=== PATIENT | male | born 1955 | race Caucasian/White ===

== ENCOUNTER 2017-03-07 18:07 | Inpatient (IN) | payer OTHER ==
[2017-03-07] MEDS ORDERED: NS 1,000 ML IV ONE (18:19)
[2017-03-07] MEDS ORDERED: ONDANSETRON 4 MG/2 ML VIAL IVP ONE (18:19)
[2017-03-07] MEDS ORDERED: HYDROmorphONE/DILAUDID 1 MG/ML INJ IVP ONE (18:19)
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
[2017-03-07 18:27] LABS: % IMMATURE GRANULYOCYTES 0.8 % (0.0-1.1); ABSOLUTE IMMATURE GRANULOCYTES 0.14 10^3/uL (0.00-0.10); ADD DIFF? NO; ADD MORPH? NO; ADD SCAN? NO; ATYPICAL LYMPHOCYTE FLAG 0 (0-99); FRAGMENT RBC FLAG 0 (0-99); HEMOGLOBIN 12.8 g/dL (13.7-17.5); LEFT SHIFT FLG 40 (0-99); LIPEMIA HEMOLYSIS FLAG 80 (0-99); MEAN CELL HEMOGLOBIN 27.5 pg (27.9-34.1); MEAN PLATELET VOLUME 9.5 fL (8.7-11.7); PLATELET CLUMPS FLAG 0 (0-99); PLATELET COUNT 250 10^3/uL (150-400); RED BLOOD CELL COUNT 4.65 10^6/uL (4.40-6.38); RED CELL DISTRIBUTION WIDTH 14.2 % (11.5-15.2)
[2017-03-07] MEDS ORDERED: CEFAZOLIN 2 GM/DEXTROSE/100 ML BAG IV ONE (18:29)
[2017-03-07 18:39] LABS: INR 1.22 (0.83-1.16); PROTIME(PATIENT) 15.4 SEC (12.0-15.0)
[2017-03-07 18:40] LABS: APTT 25.2 SEC (23.0-38.0)
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
[2017-03-07 18:46] LABS: ANION GAP 15 mEq/L (8-16); CALCIUM 9.2 mg/dL (8.5-10.4); CARBON DIOXIDE 21 mEq/l (22-31); CHLORIDE 102 mEq/L (97-110); CREATININE 1.3 mg/dL (0.7-1.3); ETHANOL SERUM < 10 mg/dL (0-10); GLOMERULAR FILTRATION RATE 57; GLUCOSE 187 mg/dL (70-100); POTASSIUM 3.6 mEq/L (3.5-5.2); SODIUM 138 mEq/L (134-144)
[2017-03-07] MEDS ORDERED: TDAP ADULT 0.5 ML INJ (BOOSTRIX) IM ONE (18:55)
[2017-03-07] MEDS ORDERED: ceFAZolin 2 GM/DEXTROSE 100 ML IV ONE (18:59)
--- NOTE | 2017-03-07 19:12 | ASMTCMCOM ---
CM Note CM Note Notes: Patient's children live in [place], [place]: daughter Marley ([phone]), daughter Britany ([phone]), and son Sam ([phone]). Patient's girlfriend Sabine Bangura has arrived to the ED and is being updated on patient's condition. Date Signed: 03/07/2017 07:12 PM Electronically Signed By:Elisabeth Rizzo RN
[2017-03-07] MEDS ORDERED: ONDANSETRON 4 MG/2 ML VIAL IVP PRN (19:20)
--- NOTE | 2017-03-07 19:22 | ASMTCMCOM ---
CM Note CM Note Notes: Patient's girlfriend, Sabine Bangura's cell phone # ([phone]). Spoke with patient and he would prefer to not contact his children at this time. He would like to wait until he is more coherent and able to talk to them himself. This was communicated to Sabine and the ED RN. Date Signed: 03/07/2017 07:21 PM Electronically Signed By:Elisabeth Rizzo RN
[2017-03-07] MEDS ORDERED: LR 1,000 ML IV SCH (19:30)
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
[2017-03-07] MEDS: HYDROmorphONE/DILAUDID 2 MG/ML INJ IVP PRN (20:39)
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
[2017-03-07] MEDS ORDERED: fentaNYL 100 MCG/2 ML INJ ONE (21:30)
[2017-03-07] MEDS ORDERED: PROPOFOL 200 MG/20 ML VIAL ONE ×2 (21:30)
[2017-03-07] MEDS ORDERED: ROCURONIUM 50 MG/5 ML VIAL ONE (21:32)
[2017-03-07] MEDS ORDERED: MIDAZOLAM 2 MG/2 ML VIAL IVP ONE (21:51)
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
[2017-03-07] MEDS ORDERED: MIDAZOLAM 2 MG/2 ML VIAL ONE (21:53)
[2017-03-07] MEDS ORDERED: PHENYLEPHRINE HCL 100 MCG/ML SYR ONE (22:20)
[2017-03-07] MEDS ORDERED: ceFAZolin 1 GM VIAL ONE ×2 (22:26)
[2017-03-07] MEDS ORDERED: ALBUMIN 5% 250 ML BOTTLE IV ONE (22:31)
[2017-03-07] MEDS ORDERED: VASOPRESSIN 20 UNIT/ML VIAL ONE (22:47)
[2017-03-07 22:51] LABS: HEMATOCRIT 27.6 % (40.0-51.0); HEMOGLOBIN 8.9 g/dL (13.7-17.5)
[2017-03-07] MEDS ORDERED: DEXAMETHASONE 4 MG/ML VIAL ONE (23:03)
[2017-03-07] MEDS ORDERED: ONDANSETRON 4 MG/2 ML VIAL ONE (23:03)
[2017-03-08] MEDS ORDERED: fentaNYL 100 MCG/2 ML INJ IVP PRN (00:21)
[2017-03-08] MEDS ORDERED: ONDANSETRON 4 MG/2 ML VIAL IVP PRN (00:21)
[2017-03-08] MEDS ORDERED: HYDROmorphONE/DILAUDID 1 MG/ML INJ IVP PRN (00:21)
[2017-03-08] MEDS ORDERED: NALOXONE HCL 0.4 MG/ML INJ IVP PRN (00:21)
[2017-03-08] MEDS ORDERED: ACETAMINOPHEN 500 MG TAB PO PRN (00:21)
[2017-03-08] MEDS ORDERED: PROMETHAZINE HCL 25 MG/ML INJ IVP PRN (00:21)
[2017-03-08] MEDS ORDERED: HYDROmorphONE/DILAUDID 1 MG/ML INJ ONE (00:21)
[2017-03-08] MEDS ORDERED: OXYCODONE/APAP 5/325 TAB PO PRN (00:21)
--- NOTE | 2017-03-08 01:14 | SUROPNOTE ---
[facility] Operative Report - Surgery Pre-op diagnosis: left proximal tibia and fibula fractures, open and comminuted. Procedure: I and D and ORIF proximal tibia fracture. Complications: None Post-op diagnosis: ORIF left proximal tibia fracture.
--- NOTE | 2017-03-08 01:21 | POSTOPPROG ---
Post Op Note Date of Operation: 03/08/17 Surgeon: Gisell Salazar Inf/Ajay present in the surg proc area at time of surgery?: No Complications: Pre-op diagnosis: Left open proximal tibia fracture, proximal fibula fracture, comminuted. Procedure: I and D and debridement with ORIF proximal tibia fracture. Complications: none Post-op diagnosis: Left proximal tibia fracture with ORIF repair, proximal fibula fracture. Surgeon: Dr. Dang
--- NOTE | 2017-03-08 01:38 | POSTANESTH ---
Post Anesthetic Evaluation Cardiovascular Status: Normal, Stable, Similar to Pre-Op Cond Respiratory Status: Normal, Stable, Similar to Pre-op Cond. Level of Consciousness/Mental Status: Can Participate in Eval, Alert and Oriented Pain Control: Adequate, Prn Tx Ordered Nausea/Vomiting Control: Adequate, Prn Tx Ordered Complications Possibly Related to Anesthesia: None Noted
[2017-03-08] MEDS: HYDROCODONE/APAP 5/325 TAB PO PRN ×3 (02:02→18:01)
[2017-03-08] MEDS: BACITRACIN ZINC 14.2 GM OINTTUBE TP SCH ×3 (02:04→21:24)
[2017-03-08 03:12] LABS: COLOR YELLOW; LEUKOCYTE ESTERASE,URINE NEGATIVE (NEGATIVE); NITRITE,URINE NEGATIVE (NEGATIVE)
[2017-03-08] MEDS: HYDROmorphONE/DILAUDID 2 MG/ML INJ IVP PRN ×2 (04:25→09:20)
[2017-03-08] MEDS: ceFAZolin 2 GM/DEXTROSE 100 ML IV SCH ×3 (05:26→21:23)
[2017-03-08 05:31] LABS: HEMATOCRIT 27.4 % (40.0-51.0); HEMOGLOBIN 8.7 g/dL (13.7-17.5); MEAN CELL HEMOGLOBIN 27.4 pg (27.9-34.1); MEAN CELL HEMOGLOBIN CONCENTR. 31.8 g/dL (32.4-36.7); MEAN CELL VOLUME 86.4 fL (81.5-99.8); RED BLOOD CELL COUNT 3.17 10^6/uL (4.40-6.38); RED CELL DISTRIBUTION WIDTH 14.3 % (11.5-15.2)
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
[2017-03-08 05:38] LABS: ANION GAP 10 mEq/L (8-16); CALCIUM 8.6 mg/dL (8.5-10.4); CARBON DIOXIDE 21 mEq/l (22-31); CHLORIDE 105 mEq/L (97-110); GLOMERULAR FILTRATION RATE > 60; GLUCOSE 187 mg/dL (70-100); POTASSIUM 4.9 mEq/L (3.5-5.2); SODIUM 136 mEq/L (134-144)
--- NOTE | 2017-03-08 08:44 | SOAPPROG ---
SOAP Progress Note Assessment/Plan: Assessment:Pt. POD #1 after ORIF an open, displaced proximal tibia fracture. Plan:Continue pain management Continue Q8H Cefazolin for a total of 24 hours. PT/OT zora JOAQUIN LLE-ambulate with crutches when able Pt. to remain in brace at all times Ice Elevate Reinforce dressing if needed. Subjective: Pt. states that pain is well controlled with medications that he has been given up to this point. No fevers, MAYS, SOB, CP, N/V, lower extremity numbness or tingling, no calf pain. O: Pt. is alert and oriented in no acute distress. Pt. has no calf TTP, no swelling. Distally, pt. is NVBI. Devonte wraps removed and there is some light bleeding into gauze. 03/08/17 08:39 Objective: Vital Signs Temp Pulse Resp BP Pulse Ox 37.2 C 117 H 16 139/73 H 100 03/08/17 08:00 03/08/17 08:00 03/08/17 08:00 03/08/17 08:00 03/08/17 08:00 Laboratory Results 03/08/17 04:55 03/08/17 04:55 03/07/17 03/08/17 03/09/17 05:59 05:59 05:59 Intake Total 5695 Output Total 1000 Balance 4695 PT 15.4 SEC (12.0-15.0) H 03/07/17 18:15 INR 1.22 (0.83-1.16) H 03/07/17 18:15 ICD10 Worksheet Patient Problems: Problems Problem Status Onset Open fracture Acute
[2017-03-08] MEDS: ENOXAPARIN 40 MG/0.4 ML SYR SC SCH (09:23)
[2017-03-08] MEDS: CYCLOBENZAPRINE 10 MG TAB PO PRN ×2 (11:43→21:23)
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
[2017-03-09] MEDS: CYCLOBENZAPRINE 10 MG TAB PO PRN (05:44)
--- NOTE | 2017-03-09 08:48 | SOAPPROG ---
SOAP Progress Note Assessment/Plan: Assessment/Plan: s/p I&D and ORIF L proximal tibia fracture POD#2 - Continue pain management - NWB LLE - Dressing change done today - Lovenox 40mg daily x 21 days for VTE chemoprophylaxis - KURT/SCD on the RLE for mechanical prophylaxis - Brace to remain on and intact at all times; locked in extension at rest. ROM 0 to 90 degrees - Stable from an orthopedic standpoint, will need appropriate follow-up in 03/09/17 08:44 Subjective: Pt states he is doing well, pain is well-controlled. Pt denies fever, chills, chest pain, SOB, abdominal pain, N/V/D, numbness, tingling, and calf pain. Objective: Vital Signs Temp Pulse Resp BP Pulse Ox 37.4 C 124 H 16 139/75 H 96 03/09/17 07:59 03/09/17 07:59 03/09/17 07:59 03/09/17 07:59 03/09/17 07:59 Laboratory Results 03/08/17 04:55 03/08/17 04:55 03/08/17 03/09/17 03/10/17 05:59 05:59 05:59 Intake Total 5695 1670 Output Total 1000 2300 Balance 4695 -630 PT 15.4 SEC (12.0-15.0) H 03/07/17 18:15 INR 1.22 (0.83-1.16) H 03/07/17 18:15 Physical Exam - Physical Exam General Appearance: alert, no apparent distress Cardiac/Chest: normal peripheral pulses Skin: normal color, warm/dry, other (facial abrasions) Extremities: normal capillary refill, other (incision site c/d/i), No pedal edema, No calf tenderness, No Johnathan's sign Neuro/Psych: no motor/sensory deficits, alert, normal mood/affect, oriented x 3 ICD10 Worksheet Patient Problems: Problems Problem Status Onset Open fracture Acute
[2017-03-09] MEDS: HYDROCODONE/APAP 5/325 TAB PO PRN ×3 (08:49→20:09)
[2017-03-09] MEDS: BACITRACIN ZINC 14.2 GM OINTTUBE TP SCH ×2 (08:49→20:10)
[2017-03-09] MEDS: ENOXAPARIN 40 MG/0.4 ML SYR SC SCH (08:49)
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
--- NOTE | 2017-03-09 14:27 | CPEKG ---
Heart Rate: 117 RR Interval: 513 P-R Interval: 128 QRSD Interval: 86 QT Interval: 264 QTC Interval: 369 P [place]: 57 QRS [place]: 31 T Wave [place]: 235 EKG Severity - OTHERWISE NORMAL ECG - EKG Impression: SINUS TACHYCARDIA Electronically Signed By: Kavon Hackett 15-Mar-2017 08:55:11
[2017-03-09 18:44] LABS: % IMMATURE GRANULYOCYTES 0.4 % (0.0-1.1); ABSOLUTE IMMATURE GRANULOCYTES 0.03 10^3/uL (0.00-0.10); ADD DIFF? NO; ADD MORPH? NO; ADD SCAN? NO; ATYPICAL LYMPHOCYTE FLAG 0 (0-99); FRAGMENT RBC FLAG 0 (0-99); HEMATOCRIT 21.5 % (40.0-51.0); LEFT SHIFT FLG 20 (0-99); LIPEMIA HEMOLYSIS FLAG 80 (0-99); MEAN CELL HEMOGLOBIN 27.6 pg (27.9-34.1); MEAN CELL HEMOGLOBIN CONCENTR. 32.6 g/dL (32.4-36.7); MEAN CELL VOLUME 84.6 fL (81.5-99.8); MEAN PLATELET VOLUME 9.9 fL (8.7-11.7); PLATELET CLUMPS FLAG 0 (0-99); PLATELET COUNT 138 10^3/uL (150-400); RED BLOOD CELL COUNT 2.54 10^6/uL (4.40-6.38); RED CELL DISTRIBUTION WIDTH 14.2 % (11.5-15.2)
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
[2017-03-09] MEDS: PRAVASTATIN SODIUM 20 MG TAB PO SCH (21:05)
[2017-03-09] MEDS: LISINOPRIL 10 MG TAB PO SCH (21:06)
[2017-03-10] MEDS ORDERED: BISACODYL 10 MG SUPP PR PRN (07:12)
[2017-03-10] MEDS ORDERED: MAGNESIUM HYDROXIDE 30 ML UDCUP PO PRN (07:12)
[2017-03-10] MEDS ORDERED: POLYETHYLENE GLYCOL 3350 17 GM PKT PO PRN (07:12)
[2017-03-10] MEDS ORDERED: LACTULOSE 20 GM/30 ML UDCUP PO PRN (07:12)
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
[2017-03-10] MEDS: HYDROCODONE/APAP 5/325 TAB PO PRN ×2 (09:22→20:00)
[2017-03-10] MEDS: OMEGA-3 FATTY ACIDS 1,000 MG CAP PO SCH (09:22)
[2017-03-10] MEDS: MULTIVITAMINS 1 EACH TAB PO SCH (09:22)
[2017-03-10] MEDS: ENOXAPARIN 40 MG/0.4 ML SYR SC SCH (09:23)
[2017-03-10] MEDS: SENNOSIDES/DOCUSATE SODIUM TAB PO SCH ×2 (09:23→20:01)
[2017-03-10] MEDS: ACYCLOVIR 400 MG TAB PO SCH (09:24)
[2017-03-10] MEDS: BACITRACIN ZINC 14.2 GM OINTTUBE TP SCH ×2 (09:24→20:02)
--- NOTE | 2017-03-10 15:46 | ASMTCMCOM ---
CM Note CM Note Notes: No CM d/c needs identified at this time, pt plans to return to [place] [facility]. CM available for changes/needs. Date Signed: 03/10/2017 03:46 PM Electronically Signed By:ALFREDO Mckeon
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
[2017-03-10] MEDS: LISINOPRIL 10 MG TAB PO SCH (20:01)
[2017-03-10] MEDS: PRAVASTATIN SODIUM 20 MG TAB PO SCH (20:01)
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
[2017-03-11 05:17] LABS: % IMMATURE GRANULYOCYTES 0.9 % (0.0-1.1); ABSOLUTE IMMATURE GRANULOCYTES 0.06 10^3/uL (0.00-0.10); ADD DIFF? NO; ADD MORPH? NO; ADD SCAN? NO; ATYPICAL LYMPHOCYTE FLAG 0 (0-99); FRAGMENT RBC FLAG 0 (0-99); HEMATOCRIT 26.9 % (40.0-51.0); HEMOGLOBIN 8.8 g/dL (13.7-17.5); LEFT SHIFT FLG 10 (0-99); LIPEMIA HEMOLYSIS FLAG 80 (0-99); MEAN CELL HEMOGLOBIN 27.8 pg (27.9-34.1); MEAN CELL HEMOGLOBIN CONCENTR. 32.7 g/dL (32.4-36.7); MEAN CELL VOLUME 84.9 fL (81.5-99.8); MEAN PLATELET VOLUME 9.5 fL (8.7-11.7); PLATELET CLUMPS FLAG 0 (0-99); PLATELET COUNT 177 10^3/uL (150-400); RED BLOOD CELL COUNT 3.17 10^6/uL (4.40-6.38); RED CELL DISTRIBUTION WIDTH 14.7 % (11.5-15.2)
[2017-03-11] MEDS: ENOXAPARIN 40 MG/0.4 ML SYR SC SCH (08:35)
[2017-03-11] MEDS: SENNOSIDES/DOCUSATE SODIUM TAB PO SCH ×2 (08:35→20:59)
[2017-03-11] MEDS: OMEGA-3 FATTY ACIDS 1,000 MG CAP PO SCH (08:36)
[2017-03-11] MEDS: ACYCLOVIR 400 MG TAB PO SCH (08:36)
[2017-03-11] MEDS: MULTIVITAMINS 1 EACH TAB PO SCH (08:36)
[2017-03-11] MEDS: HYDROCODONE/APAP 5/325 TAB PO PRN ×2 (08:36→18:40)
[2017-03-11] MEDS: BACITRACIN ZINC 14.2 GM OINTTUBE TP SCH ×2 (08:38→20:57)
--- NOTE | 2017-03-11 12:55 | SOAPPROG ---
[facility] Progress Note Assessment/Plan: Assessment/Plan: s/p I&D and ORIF L proximal tibia fracture POD#4 - Continue pain management - NWB LLE - Dressing change done today - Lovenox 40mg daily x 21 days for VTE chemoprophylaxis - KURT/SCD on the RLE for mechanical prophylaxis - Brace to remain on and intact at all times; locked in extension at rest. ROM 0 to 90 degrees - Stable from an orthopedic standpoint, will need appropriate follow-up in 03/09/17 08:44 03/11/17 12:53 Subjective: Pt states he has minimal pain in the LLE. He has been ambulating well with PT and OT. Pt denies fever, chills, chest pain, SOB, abdominal pain, N/V/D, numbness, tingling and calf pain. Objective: Vital Signs Temp Pulse Resp BP Pulse Ox 36.9 C 106 H 16 140/77 H 94 03/11/17 08:34 03/11/17 07:55 03/11/17 07:55 03/11/17 07:55 03/11/17 07:55 Laboratory Results 03/11/17 04:57 03/08/17 04:55 03/10/17 03/11/17 03/12/17 05:59 05:59 05:59 Intake Total 1100 2623 Output Total 2750 1850 400 Balance -1650 773 -400 PT 15.4 SEC (12.0-15.0) H 03/07/17 18:15 INR 1.22 (0.83-1.16) H 03/07/17 18:15 Physical Exam - Physical Exam General Appearance: alert, no apparent distress Cardiac/Chest: normal peripheral pulses Skin: normal color, warm/dry Extremities: normal capillary refill, No pedal edema, No calf tenderness, No swelling, No Johnathan's sign Neuro/Psych: no motor/sensory deficits, alert, normal mood/affect, oriented x 3 ICD10 Worksheet Patient Problems: Problems Problem Status Onset Open fracture Acute
--- NOTE | 2017-03-11 13:13 | TRAUMAPN ---
Subjective: resting comfortably/complains of upper back pain/tolerating soft diet Objective: Vital Signs Temp Pulse Resp BP Pulse Ox 36.9 C 106 H 16 140/77 H 94 03/11/17 08:34 03/11/17 07:55 03/11/17 07:55 03/11/17 07:55 03/11/17 07:55 Laboratory Results 03/11/17 04:57 03/08/17 04:55 03/10/17 03/11/17 03/12/17 05:59 05:59 05:59 Intake Total 1100 2623 Output Total 2750 1850 400 Balance -1650 773 -400 PT 15.4 SEC (12.0-15.0) H 03/07/17 18:15 INR 1.22 (0.83-1.16) H 03/07/17 18:15 - C-Spine Clearance Cervical Spine Cleared: Yes Physical Exam - Physical Exam General Appearance: WD/WN, alert, no apparent distress EENT: other (right periorbital ecchymosis) Neck: non-tender Respiratory: lungs clear Cardiac/Chest: regular rate, rhythm Abdomen: non-tender, soft Back: Normal inspection, Other (no focal tenderness thoracic/lumbar spine) Skin: normal color, warm/dry Extremities: other (LLE posterior splint/distal ankle swelling with intact pulses and sensation) Neuro/Psych: no motor/sensory deficits, oriented x 3
[2017-03-11] MEDS: CYCLOBENZAPRINE 10 MG TAB PO PRN (14:07)
[2017-03-11] MEDS: PRAVASTATIN SODIUM 20 MG TAB PO SCH (20:55)
[2017-03-11] MEDS: LISINOPRIL 10 MG TAB PO SCH (20:56)
[2017-03-12] MEDS: HYDROCODONE/APAP 5/325 TAB PO PRN ×2 (01:46→08:00)
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
[2017-03-12] MEDS: ENOXAPARIN 40 MG/0.4 ML SYR SC SCH (07:59)
[2017-03-12] MEDS: SENNOSIDES/DOCUSATE SODIUM TAB PO SCH (08:00)
[2017-03-12] MEDS: ACYCLOVIR 400 MG TAB PO SCH (08:00)
[2017-03-12] MEDS: MULTIVITAMINS 1 EACH TAB PO SCH (08:00)
[2017-03-12] MEDS: CYCLOBENZAPRINE 10 MG TAB PO PRN (08:01)
[2017-03-12] MEDS: OMEGA-3 FATTY ACIDS 1,000 MG CAP PO SCH (08:02)
[2017-03-12] MEDS: BACITRACIN ZINC 14.2 GM OINTTUBE TP SCH (08:11)
[2017-03-12 08:18] VITALS: BP 143/74; PULSE 110; RESP 16; TEMP 97.8; O2SAT 95
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
== END 2017-03-12 13:51 | disposition home or self-care (01) | DRG 493 ==
LOC: OBSVTOIN 19:20 → F3N 20:15
PROVIDERS: ADMIT Surgery; ATTEND Orthopaedic Surgery
DX: S82.142B Displaced bicondylar fracture of left tibia, initial encounter for open fracture type I or II (principal); S82.252B Displaced comminuted fracture of shaft of left tibia, initial encounter for open fracture type I or II; S82.402B Unspecified fracture of shaft of left fibula, initial encounter for open fracture type I or II; S09.22XA Traumatic rupture of left ear drum, initial encounter; S02.2XXA Fracture of nasal bones, initial encounter for closed fracture; S02.652A Fracture of angle of left mandible, initial encounter for closed fracture; S02.69XA Fracture of mandible of other specified site, initial encounter for closed fracture; V86.55XA Driver of 3- or 4- wheeled all-terrain vehicle (ATV) injured in nontraffic accident, initial encounter; Y92.828 Other wilderness area as the place of occurrence of the external cause; I10 Essential (primary) hypertension; E78.00 Pure hypercholesterolemia, unspecified; Z79.82 Long term (current) use of aspirin
CPT/HCPCS: 80305; 82947-QW; 92523-GN; 96365; 97116-GP; 97161-GP; 97166-GO; 97530-GP; 97535-GO; C1713; C1769; G0480; J0690; J1100; J1170; J1650; J2250; J2370; J2405; J2704; J3010; L1832; P9016; P9041